=== PATIENT | female | born 2005 | race Caucasian/White ===

== ENCOUNTER 2024-02-04 17:18 | Emergency (ER) | payer BC, SELFPAY ==
[2024-02-04 17:24] VITALS: BP 117/73
--- NOTE | 2024-02-04 19:05 | ED.GENMED ---
History of Present Illness
General
Chief Complaint: Musculo-Skeletal Complaint
Source: patient
Exam Limitations: none
Time Seen by Provider: 02/04/24 17:33
Nursing documentation reviewed up to this point in time: agreed with
Travel History
Have you had any contact with someone who has COVID-19?: No
Do you have any symptoms of coronavirus? Fever > 100 degrees, chills, cough, shortness of breath, sore throat, loss of taste or smell, muscle aches, or headache?: No
History of Present Illness
History of Present Illness:
Patient is a 18-year-old female [place] on her left shoulder. She initially did not have any pain but then had pain when she try to get herself up. She denies any other injuries. She is right-hand
dominant. She has not taken anything for pain. she has pain when she moves her left arm.
Review of Systems
Review of Systems
Allergies reviewed?: Yes
All Other Systems: ROS reviewed and negative except as documented in HPI and ROS
Constitutional: Reports no symptoms
Musculoskeletal: Reports other (left shoulder pain /injury )
Skin: Reports no symptoms
Hematologic/Lymphatic: Reports no symptoms
Psychiatric: Reports no symptoms
Phy Exam
General Physical Exam
General Presentation: no apparent distress
General age: appears stated age
General Skin: warm and dry
General Habitus: normal
General Mental: alert
Neurological Exam
Neurological Exam: alert and oriented x3
Musculoskeletal Exam
Musculoskeletal Exam: other (Normal inspection to left shoulder mildly tender to palpation mild discomfort with full left shoulder abduction strong distal pulses normal distal sensation)
Skin Exam
Skin Exam: normal color and warm/dry
Psychiatric Exam
Psychiatric Exam: normal mood/affect
Course
Orders/Labs/Results
Orders:
Orders
02/04/24 17:23
CR Shoulder, Trauma - Left Urgent
Reason For Exam: injury, fall, pain
02/04/24 19:04
Sling Left-Treatment ONCE
Ibuprofen [Motrin] 400 mg PO NOW STA
Vital Signs
Initial and Last Documented VS:
Initial Vital Signs
Temp Pulse Resp Pulse Ox
99.0 F 85 18 100
02/04/24 17:21 02/04/24 17:21 02/04/24 17:21 02/04/24 17:21
Last Documented Vital Signs
Temp Pulse Resp BP Pulse Ox
99.0 F 85 18 117/73 100
02/04/24 17:21 02/04/24 17:21 02/04/24 17:21 02/04/24 17:24 02/04/24 17:21
MDM/Problems Addressed
Differential Diagnosis Includes:
Not limited to fracture dislocation AC separation shoulder sprain contusion
MDM/Problems Addressed:
X-ray negative for fracture there is mild elevation of the distal clavicle relative to the acromion process suspicious for a possible grade 2 AC separation will. Will have patient follow-up with orthopedics will place patient in a sling
*Radiology
Radiology exam reviewed: radiology read reviewed
*Critical Care Note
Total Time (30-74mins, 75-104mins- exclusive of procedures): Not Applicable
ED Attending Note
-
Portions of this chart may have been created with voice recognition software.� Occasional wrong word or��sound alike� substitutions may have occurred due to the inherent limitations of voice recognition software.
Discharge Plan
Departure
Patient Disposition: Home (Routine Discharge)
Date of Disposition: 02/04/24
Time of Disposition: 19:10
Patient with high blood pressure during this ER visit?: No
Condition: Fair
Covid-19: Not Applicable
Discharge Problem:
AC separation
Instructions: shoulder, How to Use a Shoulder Sling
Referrals:
Ganga Rucker MD [Active] -
NONE,* [Family Provider] -
Activity Restrictions/Additional Instructions:
As discussed ice affected area for the first 24 hours 20 minutes at a time several times a day. Ibuprofen every hours of food. Call orthopedics tomorrow for an appointment extremities for reevaluation return if any worsening of symptoms.
Interventions
Interventions:
*Risk Screen - Suicide Last Done: 02/04/24 17:22
*General Assessment Last Done: 02/04/24 17:22
*Neglect/Abuse Screening Last Done: 02/04/24 17:22
*ED COVID-19 Vaccine History Last Done: 02/04/24 17:22
*Nursing Disposition Last Done: 02/04/24 19:47
ED-Musculoskeletal Assessment Last Done: 02/04/24 17:24
Discharge Date and Time
Discharge Date/Time: 02/04/24 19:48
Print Language: SINHALA
[2024-02-04] MEDS: MOTRIN 400 MG PO (19:29)
== END 2024-02-04 19:48 | disposition home or self-care (01) ==
LOC: EMR 17:18
PROVIDERS: EMERGENCY PHYSICIAN Emergency Medicine
DX: S43.102A Unspecified dislocation of left acromioclavicular joint, initial encounter (principal); W19.XXXA Unspecified fall, initial encounter; Y93.44 Activity, trampolining
CPT/HCPCS: 99283; 73030